=== PATIENT | female | born 1995 | race Caucasian/White ===

== ENCOUNTER 2018-05-02 10:14 | Emergency (ER) | payer OTHER ==
[~2018-05-02] VITALS: Ht 152.4 cm; Wt 42.6 kg
[2018-05-02 10:26] VITALS: BP 129/75; Ht 152.4 cm; Wt 42.6 kg
== END 2018-05-02 11:14 | disposition home or self-care (01) ==
LOC: ED 10:14
DX: R51 Headache (principal); H57.11 Ocular pain, right eye; R11.0 Nausea

== ENCOUNTER 2018-05-05 10:25 | Emergency (ER) | payer OTHER ==
[~2018-05-05] VITALS: Ht 152.4 cm; Wt 43.5 kg
[2018-05-05 10:33] VITALS: Ht 152.4 cm; Wt 43.5 kg
[2018-05-05 13:12] VITALS: BP 114/68
== END 2018-05-05 13:12 | disposition home or self-care (01) ==
LOC: ED 10:25
DX: S09.8XXA Other specified injuries of head, initial encounter (principal); H57.11 Ocular pain, right eye; V43.52XA Car driver injured in collision with other type car in traffic accident, initial encounter; Y93.I9 Activity, other involving external motion; Y92.488 Other paved roadways as the place of occurrence of the external cause; Y99.8 Other external cause status
CPT/HCPCS: Q0162